=== PATIENT | male | born 1940 | race Caucasian/White ===

== ENCOUNTER 2024-02-06 11:42 | Emergency (ER) | payer MEDICARE, OTHER ==
[2024-02-06 12:22] VITALS: BP 142/74; PULSE 94
[2024-02-06] MEDS ORDERED: Diphtheria,Pertussis(Acell),Tetanus Vaccine 0.5 ML Syringe IM ONE (13:41)
[2024-02-06] MEDS ORDERED: cefTRIAXone 1 GM Vial IVPUSH ONE (13:41)
== END 2024-02-06 13:32 | disposition left against medical advice (07) ==
LOC: DL.ED 11:42
DX: L02.511 Cutaneous abscess of right hand (principal)
CPT/HCPCS: 73130-RT; 99283